=== PATIENT | male | born 1965 | race Caucasian/White ===

== ENCOUNTER 2021-06-03 09:00 | Emergency (ER) | payer MEDICAID, OTHER ==
[2021-06-03] MEDS: Sodium Chloride 0.9% 1,000 ML IV ONE (10:10)
== END 2021-06-03 12:10 | disposition home or self-care (01) ==
LOC: LB.ED 09:00
DX: R73.9 Hyperglycemia, unspecified (principal); Z88.2 Allergy status to sulfonamides; Z20.822 Contact with and (suspected) exposure to COVID-19
CPT/HCPCS: 36415; 71045; 80053; 81001; 85025; 87635; 99285; J7030; U0002

== ENCOUNTER 2021-08-08 17:26 | Emergency (ER) | payer MEDICAID | END 2021-08-08 18:58 | disposition home or self-care (01) | LOC: LB.ED 17:26 | DX: S30.1XXA Contusion of abdominal wall, initial encounter (principal); E10.65 Type 1 diabetes mellitus with hyperglycemia; Z88.2 Allergy status to sulfonamides; Z79.899 Other long term (current) drug therapy; Z79.4 Long term (current) use of insulin; X58.XXXA Exposure to other specified factors, initial encounter | CPT/HCPCS: 99283 ==

== ENCOUNTER 2022-12-23 18:57 | Emergency (ER) | payer MEDICAID ==
[2022-12-23] MEDS ORDERED: Lidocaine 1% PF 2 ML SDV INJECT ONE (20:00)
== END 2022-12-23 20:22 | disposition home or self-care (01) ==
LOC: LB.ED 18:57
DX: S61.213A Laceration without foreign body of left middle finger without damage to nail, initial encounter (principal); E10.9 Type 1 diabetes mellitus without complications; Z88.2 Allergy status to sulfonamides; Z79.899 Other long term (current) drug therapy; W26.8XXA Contact with other sharp object(s), not elsewhere classified, initial encounter
CPT/HCPCS: 12001; 99282

== ENCOUNTER 2025-04-09 20:10 | Emergency (ER) | payer MEDICARE ==
[2025-04-09] MEDS ORDERED: Sodium Chloride 0.9% 10 ML Syringe FLUSH PRN (20:43)
[2025-04-09 21:12] LABS: BASOPHILS ABSOLUTE AUTO 0.00 K/uL (0.02-0.10); BASOPHILS PERCENT AUTO 0.0 % (0.0-0.5); EOSINOPHILS ABSOLUTE AUTO 0.00 K/uL (0.04-0.40); EOSINOPHILS PERCENT AUTO 0.0 % (1.0-5.0); LYMPHOCYTES ABSOLUTE AUTO 0.61 K/uL (1.50-4.00); LYMPHOCYTES PERCENT AUTO 16.7 % (20.0-40.0); MEAN PLATELET VOLUME 9.5 fL (6.0-10.0); MONOCYTES ABSOLUTE AUTO 0.33 K/uL (0.20-0.80); MONOCYTES PERCENT AUTO 9.0 % (3.0-10.0); NEUTROPHILS ABSOLUTE AUTO 2.71 K/uL (2.00-7.50); NEUTROPHILS PERCENT AUTO 74.3 % (45.0-70.0); PLATELET COUNT,PLT 100 K/uL (150-400); RED BLOOD CELL COUNT 3.74 M/uL (4.50-6.50); RED CELL DISTRIBUTION WIDTH 12.6 % (11.0-16.0); WHITE BLOOD CELL COUNT,WBC 3.7 K/uL (4.0-11.0)
[2025-04-09 21:28] LABS: A/G RATIO 1.0 (0.8-2.0); ALANINE AMINOTRANSFERASE,ALT 41 U/L (12-78); ASPARTATE AMNIOTRANSFERASE,AST 35 U/L (15-37); BILIRUBIN TOTAL 0.6 mg/dL (0.0-1.0); BLOOD UREA NITROGEN,BUN 24 mg/dL (8-26); CARBON DIOXIDE,CO2 28.3 mmol/L (21.0-32.0); CHLORIDE,CL 103 mmol/L (98-107); CREATININE 1.44 mg/dL (0.70-1.30); ESTIMATED GFR 56 mL/min (>60); GLUCOSE RANDOM 219 mg/dL (74-100); POTASSIUM,K 4.2 mmol/L (3.5-5.1); PROTEIN TOTAL,TP 6.7 g/dL (6.4-8.2); SODIUM,NA 139 mmol/L (136-145)
[2025-04-09] MEDS: Sodium Chloride 0.9% 50 ML SDV FLUSH SCH (22:14)
[2025-04-09] MEDS: Iodixanol 652 MG/ML 100 ML Bottle IV PRN (22:14)
[2025-04-09 23:04] LABS: APPEARANCE,URINE CLEAR (CLEAR); GLUCOSE,URINE 100 mg/dL (NEGATIVE); OCCULT BLOOD,URINE NEGATIVE (NEGATIVE)
[2025-04-09 23:05] LABS: EPITHELIAL CELLS,URINE OCCASIONAL /HPF
== END 2025-04-10 00:07 | disposition home or self-care (01) ==
LOC: LB.ED 20:10
DX: R10.11 Right upper quadrant pain (principal); E10.9 Type 1 diabetes mellitus without complications
CPT/HCPCS: 36415; 74177; 80053; 81001; 83690; 85025; 96374; 96375; 99284; J1171; J2470